=== PATIENT | female | born 1995 | race Caucasian/White ===

== ENCOUNTER 2018-04-08 21:31 | Emergency (ER) | payer OTHER ==
[2018-04-08 21:35] VITALS: BP 136/80; PULSE 100; TEMP 98.5; BMI 21.9
--- NOTE | 2018-04-08 21:37 | PDOC ---
Rapid Medical Evaluation Chief Complaint: Pain Time Seen by Provider: 04/08/18 21:33 Medical Evaluation: I have performed a brief in-person evaluation of this patient. The patient presents with a chief complaint of: 9 weeks lower abdominal cramping Pertinent physical exam findings: none I have ordered the following: UA/culture, beta hcg, labs, transvaginal ultrasound The patient will proceed to the ED for further evaluation. Discharge Disposition - Diagnosis Abdominal pain affecting - Referrals - Patient Instructions - Post Discharge Activity
[2018-04-08 22:04] LABS: BASO % 0.5 % (0-2.0); EOS % 2.2 % (0-4.5); HEMATOCRIT 39.7 % (32.4-45.2); HEMOGLOBIN 12.6 GM/dL (10.7-15.3); LYMPH % 32.9 % (8-40); MCH 21.8 pg (25.7-33.7); MCHC 31.8 g/dl (32.0-36.0); MEAN CELL VOLUME 68.6 fl (80-96); MEAN PLT VOLUME 10.5 fl (7.5-11.1); MONO % 9.6 % (3.8-10.2); NEUT % 54.8 % (42.8-82.8); PLATELET COUNT 248 K/MM3 (134-434); RBC 5.79 M/mm3 (3.60-5.2); RDW 19.2 % (11.6-15.6); WHITE BLOOD COUNT 7.8 K/mm3 (4.0-10.0)
--- NOTE | 2018-04-08 22:10 | PDOC ---
History of Present Illness - General Chief Complaint: Pain Stated Complaint: ABDOMINAL PAIN/9 WKS Time Seen by Provider: 04/08/18 21:33 History Source: Patient Exam Limitations: No Limitations - History of Present Illness Travel History: No Initial Comments: 04/08/18 22:06 This is a 22-year-old prima who presents emergency Department with 3 hours of lower abdominal cramping. Patient states she is 9 weeks and has had a documented IUP with her [employer] PA[employer] at [facility]. LMP-01/24/18. She describes her pain as a strong menstrual cramp 05/18. She has not taken anything for pain relief. She denies any vaginal bleeding, dysuria, hematuria, diarrhea. Past History - Past Medical History Allergies/Adverse Reactions: Allergies Allergy/AdvReac Type Severity Reaction Status Date / Time No Known Allergies Allergy Verified 04/08/18 21:35 Home Medications: Ambulatory Orders Cephalexin Monohydrate [Keflex -] 500 mg PO BID #14 capsule 04/08/18 - Suicide/Smoking/Psychosocial Hx Smoking History: Never smoked Have you smoked in the past 12 months: No Information on smoking cessation initiated: No Hx Alcohol Use: No Drug/Substance Use Hx: No Review of Systems - Review of Systems Able to Perform ROS?: Yes Is the patient limited Prydeinig proficient: No Constitutional: No: Symptoms Reported HEENTM: No: Symptoms Reported Respiratory: No: Symptoms reported Cardiac (ROS): No: Symptoms Reported ABD/GI: Yes: See HPI : No: Symptoms Reported Musculoskeletal: No: Symptoms Reported Integumentary: No: Symptoms Reported Neurological: No: Symptoms reported Endocrine: No: Symptoms Reported Hematologic/Lymphatic: No: Symptoms Reported *Physical Exam - Vital Signs Last Vital Signs Temp Pulse Resp BP Pulse Ox 98.5 F 100 H 16 136/80 100 04/08/18 21:33 04/08/18 21:33 04/08/18 21:33 04/08/18 21:33 04/08/18 21:33 - Physical Exam Female Pelvic Exam: positive: normal external exam, cervical os closed, normal adnexa. negative: CMT, discharge, adnexal tenderness, vaginal bleeding Gastrointestinal/Abdominal: positive: Normal Bowel Sounds, Soft. negative: Tender ED Treatment Course - LABORATORY CBC & Chemistry Diagram: 04/08/18 21:53 04/08/18 21:53 Medical Decision Making - Medical Decision Making 04/08/18 22:08 A/P: 22-year-old female with lower abdominal cramping for 3 hours LMP-01/24/18 Abdomen soft nontender nondistended Normal external vaginal exam Normal muscle tone No cervical motion tenderness Cervical os is closed No blood noted in the vault No adnexal tenderness present Labs, urine, TVUS 04/08/18 23:10 Transvaginal ultrasound was read by Dr. Wiley: Single viable intrauterine gestation at approximately 9 weeks 6 days. 2.4 cm right ovarian cyst probably representing corpus luteum. Small amount of free fluid is noted within the right adnexa. Laboratory testing is unremarkable with urine showing a mild urinary tract infection. Due to I will treat with Keflex 500 mg twice a day for the next 7 days. Blood type is A+. *DC/Admit/Observation/Transfer Diagnosis at time of Disposition: Abdominal pain affecting UTI (urinary tract infection) during Qualifiers: Trimester: first trimester Qualified Code(s): O23.41 - Unspecified infection of urinary tract in , first trimester - Discharge Dispostion Disposition: HOME Condition at time of disposition: Stable Decision to Admit order: No - Prescriptions Prescriptions: Cephalexin Monohydrate [Keflex -] 500 mg PO BID #14 capsule - Referrals - Patient Instructions Additional Instructions: Rest, drink lots of fluids: Teas, water, soups Avoid contact with others until fevers and symptoms resolved Lots of handwashing and good hygiene Continue [id number] medications for symptomatic relief Tylenol or Motrin for fever and pain Continue all of antibiotics until completed Followup with private physician in one week for repeat urinalysis/reevaluation Return to emergency department for worsened symptoms, fevers, dehydration - Post Discharge Activity
[2018-04-08 22:18] LABS: URINE APPEARANCE SLCLOUDY; URINE BILIRUBIN NEGATIVE (<2.0 mg/dL); URINE COLOR STRAW; URINE GLUCOSE (UA) NEGATIVE (NEGATIVE); URINE KETONE NEGATIVE (NEGATIVE); URINE LEUK ESTERASE TRACE (NEGATIVE); URINE NITRITE NEGATIVE (NEGATIVE); URINE PROTEIN NEGATIVE (NEGATIVE); URINE UROBILINOGEN NEGATIVE mg/dL (0.2-1.0)
[2018-04-08 22:28] LABS: ALBUMIN 3.4 g/dl (3.4-5.0); ANION GAP 8 (8-16); BLOOD UREA NITROGEN 7 mg/dL (7-18); CALCIUM 8.2 mg/dL (8.5-10.1); CHLORIDE 105 mmol/L (98-107); CO2 24 mmol/L (21-32); CREATININE 0.7 mg/dL (0.55-1.02); EPI CELLS MODERATE /HPF (FEW); GLUCOSE,RANDOM 85 mg/dL (74-106); POTASSIUM 3.9 mmol/L (3.5-5.1); SGOT/AST 12 U/L (15-37); SGPT/ALT 20 U/L (12-78); SODIUM 137 mmol/L (136-145)
[2018-04-08 22:42] LABS: ANISOCYTOSIS 1+; PLATELET ESTIMATE ADEQUATE
[2018-04-08 22:44] LABS: ALK PHOS 34 U/L (45-117); BILIRUBIN,TOTAL 0.3 mg/dL (0.2-1.0); TOT PROT 6.8 g/dl (6.4-8.2)
== END 2018-04-08 23:47 | disposition home or self-care (01) ==
LOC: JER 21:31
DX: O26.891 Other specified pregnancy related conditions, first trimester (principal); O23.31 Infections of other parts of urinary tract in pregnancy, first trimester; O34.81 Maternal care for other abnormalities of pelvic organs, first trimester; N83.11 Corpus luteum cyst of right ovary; Z3A.09 9 weeks gestation of pregnancy
CPT/HCPCS: 36415; 76801-TC; 80053; 81003; 81015; 84702; 85025; 86850; 86900; 86901; 87086; 87186; 99284-25